=== PATIENT | male | born 1960 | race Caucasian/White ===

== ENCOUNTER 2018-10-12 10:27 | Observation (INO) ==
[2018-10-12] MEDS ORDERED: SALINE LOCK IV FLUID XX ONE (13:24)
[2018-10-12] MEDS ORDERED: ZOFRAN IV PRN (13:24)
[2018-10-12] MEDS ORDERED: TESSALON PO PRN (13:33)
[2018-10-12] MEDS ORDERED: VANCOMYCIN IV PER PHARMACY MISC SCH (13:45)
--- NOTE | 2018-10-12 14:07 | Diag Imaging Result Doc PS360 ---
EXAM: CHEST-2 VIEWS 10/12/2018 HISTORY: fever/cough TECHNIQUE: Two views the chest COMMENT: There is no evidence of acute cardiac or pulmonary disease. Compared to 05/30/2016 there has been no significant change. IMPRESSION: No evidence of acute disease. Electronically signed by Scott Yepez 10/12/2018 2:05 PM
[2018-10-12 14:29] LABS: BASO# 0.01 X1000 (0.0-0.2); BASO% 0.1 % (0.0-0.8); EOS# 0.02 X1000 (0.0-0.7); EOS% 0.2 % (0.0-10.0); HEMATOCRIT 38.7 % (42.0-52.0); HEMOGLOBIN 12.1 g/dL (14.0-18.0); IMM GRAN# 0.05 X1000 (0.0-0.04); IMM GRAN% 0.5 % (0.0-0.5); LYMPH# 0.85 X1000 (1.2-3.4); LYMPH% 7.9 % (20.5-51.1); MCH 26.4 PG (27-31); MCHC 31.3 g/dL (33-37); MCV 84.5 FL (81-99); MONO# 1.51 X1000 (0.11-0.59); MONO% 14.1 % (1.7-9.3); MPV 9.4 FL (7.4-10.4); NEUT# 8.28 X1000 (1.4-6.5); NEUT% 77.2 % (42.2-75.2); PLT 288 X1000 (130-400); RBC 4.58 XMIL (4.7-6.1); RDW 14.5 % (11.5-14.5); WBC 10.72 X1000 (4.8-10.8)
[2018-10-12 14:46] LABS: AGAP 12; ALB/GLOB RATIO 1.2; ALBUMIN 3.7 g/dL (3.5-5.0); ALKALINE PHOSPHATASE 89 U/L (32-122); BUN 11 mg/dL (8-22); CALCIUM 8.8 mg/dL (8.8-10.2); CHLORIDE 101 mmol/L (98-107); COSMO 273; CREATININE 0.9 mg/dL (0.7-1.2); ESTIMATED GFR > 60; GLUCOSE 99 mg/dL (70-104); GOT 14 U/L (10-34); GPT 31 U/L (10-44); SODIUM 137 mmol/L (136-145); TCO2 24 mmol/L (25-35); TOTAL BILIRUBIN 1.38 mg/dL (0.20-1.00); TOTAL PROTEIN 6.8 g/dL (6.3-8.3)
[2018-10-12 14:47] LABS: HEMOGLOBIN A1C 6.2 % (4.8-6.0)
--- NOTE | 2018-10-12 14:53 | Diag Imaging Result Doc PS360 ---
EXAM: CT HEAD W/O CONTRAST 10/12/2018 HISTORY: holloway/fever TECHNIQUE: This exam was performed using automated exposure control, adjustment of mA or kV according to patient size, and/or use of iterative reconstruction technique. COMMENT: There is no evidence of mass effect, bleed, or abnormal extra-axial fluid collection. The visualized paranasal sinuses are clear. The calvarium is intact. IMPRESSION: No evidence of acute disease. Electronically signed by Scott Yepez 10/12/2018 2:50 PM
[2018-10-12] MEDS: TYLENOL PO PRN ×2 (15:08→23:42)
[2018-10-12] MEDS: MAXIPIME 1 GM in NS 50 ML IV SCH (15:20)
[2018-10-12] MEDS ORDERED: VANCOMYCIN 2 GM in NS 500 ML IV SCH (17:00)
[2018-10-12] MEDS: HUMULIN R SUBQ SCH ×2 (19:57→20:47)
[2018-10-12] MEDS: ASPIRIN EC PO SCH (20:46)
[2018-10-12] MEDS: LIPITOR PO SCH (20:46)
[2018-10-12] MEDS: VANCOMYCIN 2 GM in NS 500 ML IV SCH (21:30)
--- NOTE | 2018-10-12 23:21 | HISTORY AND PHYSICAL ---
CHIEF COMPLAINT: Off-and-on fevers, with history of recent sepsis. HISTORY OF PRESENT ILLNESS: The patient is a 58-year-old white male followed in my medical practice, who states he has actually had some off-and-on fevers he has noted for the past year and a half. He has been treated over this timeframe with Humira per Dr. Armas for Crohn disease, and he has done better in that regard; however, he would have episodes of rigors and fever that would last a day or 2 at a time periodically. Over the last 2 weeks he has become much more severely ill. He says he has had some fevers, bad headaches, body aches, some discomfort in the chest and prominent cough. He was seen in the ER 4 days ago at [place] and admitted to the hospital. He underwent evaluation which included apparently lumbar puncture, blood cultures, chest x-rays and extensive labs. He was treated in the hospital with antibiotics IV, told he was diagnosed with sepsis. He is unaware of the organism, but said he was sent home on some antibiotic to take additionally at discharge, but he says he never got those filled yesterday when he was discharged. He was not running fevers for 48 hours or so during the latter part of the hospitalization, but promptly on returning home, he began to have some read redevelopment of fever last night. His temperature this morning was elevated again, and he comes in for evaluation. He does complain of some headache, some discomfort in the chest with deep inspiration, some coughing. No pinpoint tenderness over the chest. Denies leg pain or swelling. MEDICATIONS: He has been off his Humira for the past 3 weeks. Other medications include Jardiance, Nexium, aspirin and Lipitor. ALLERGIES: Penicillin. PAST MEDICAL HISTORY: 1. 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 Armas. 2. Type 2 DM, diagnosed 06/2015, with good control. 3. Hypercholesterolemia, diagnosed 06/2015. 4. GERD. PAST SURGICAL HISTORY: 1. Appendectomy. 2. Left knee arthroscopy. IMMUNIZATIONS: He has had hepatitis B vaccination #1 on 07/13/2016 and a hepatitis A vaccination one time, 07/23/2016. FAMILY HISTORY: Notable for lung cancer in his sister. Father and mother with hypertension. AR in his mother in her 40s. No diabetes in the family. Mother and father with CVA in their 40s. SOCIAL HISTORY: The patient lives in [place]. He is . 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 He has 2 children. One pack a cigarettes per day smoker for about 28 years. Denies alcohol use. REVIEW OF SYSTEMS: Negative except as above. He notably denies dysuria. Urine culture in the hospital in [place] was negative by his report. PHYSICAL EXAMINATION: VITAL SIGNS: Blood pressure 114/72, pulse 93. Temperature 101.4 degrees orally, with Tylenol on board. GENERAL: Weight 248, height 6 feet 1 inch. BMI 32. Mildly obese white male, mildly ill appearing. SKIN: Warm and dry. No rashes or skin breakdown. HEENT: NC/AT. PERRL, EOMI. Sclerae clear. TMs clear. OP: No redness. NECK: No meningeal signs. No LA or JVD. No thyromegaly or bruits. CARDIOVASCULAR: RRR without definite MGR. LUNGS: CTA. BACK: No point tenderness. ABDOMEN: Protuberant, soft, NT, ND. No mass. No HSM. GENITOURINARY/RECTAL: Deferred. EXTREMITIES: No calf tenderness, cords or edema. Peripheral pulses 2+. NEUROLOGIC: Cranial nerves 2-12 are intact. Nonfocal. ASSESSMENT: 1. Recurrent fevers in an immunocompromised patient, on Humira longstanding. 2. History of sepsis, diagnosed in the hospital in [place] by patient report. 3. Crohn disease. 4. Type 2 diabetes mellitus. 5. Hypercholesterolemia. 6. Gastroesophageal reflux disease. 7. Mild obesity. PLAN: Continue to leave off the Humira. We will admit the patient back to the hospital. Repeat blood cultures, urinalysis with culture and sensitivity. Check chest x-ray, check extensive labs to include CBC, CMP and hemoglobin A1c. Check echocardiogram. Hydrate him, keep him on a diabetic diet. Start him on broad-spectrum antibiotics of cefepime and vancomycin. We will obtain records from [facility] to see what organism had grown out in his cultures. cc: Yoni Haddad MD
[2018-10-13] MEDS ORDERED: TORADOL IV ONE (00:05)
[2018-10-13] MEDS ORDERED: DEMEROL IV ONE (00:06)
[2018-10-13] MEDS: MAXIPIME 1 GM in NS 50 ML IV SCH ×2 (02:30→13:37)
[2018-10-13] MEDS: HUMULIN R SUBQ SCH ×4 (06:22→20:01)
[2018-10-13] MEDS: NON-FORMULARY MED (Empagliflozin [Jardiance] 0 MG) PO SCH (08:43)
[2018-10-13] MEDS: TYLENOL PO PRN ×2 (08:43→17:06)
[2018-10-13] MEDS ORDERED: PRILOSEC PO SCH (09:00)
[2018-10-13 09:30] LABS: URINE SOURCE CLEAN CATCH
[2018-10-13 09:39] LABS: BILIRUBIN URINE NEGATIVE (NEGATIVE); BLOOD URINE NEGATIVE (NEGATIVE); COLOR YELLOW; GLUCOSE URINE >1000 mg/dL (NEGATIVE); KETONE URINE TRACE mg/dL (NEGATIVE); LEUKOCYTES URINE NEGATIVE (NEGATIVE); NITRITE URINE NEGATIVE (NEGATIVE); PROTEIN URINE NEGATIVE (NEGATIVE); SP GRAVITY URINE 1.017; TURBIDITY URINE CLEAR (CLEAR); UROBILINOGEN URINE NORMAL (NORMAL)
[2018-10-13 09:40] LABS: UR EPITHELIAL CELLS <10 /HPF (<10); URINE BACTERIA NEGATIVE /HPF; URINE RBC <10 /HPF (<10); URINE WBC <10 /HPF (<10)
[2018-10-13 09:51] LABS: BASO# 0.01 X1000 (0.0-0.2); BASO% 0.1 % (0.0-0.8); EOS% 1.2 % (0.0-10.0); HEMATOCRIT 40.1 % (42.0-52.0); HEMOGLOBIN 12.5 g/dL (14.0-18.0); IMM GRAN# 0.07 X1000 (0.0-0.04); IMM GRAN% 0.8 % (0.0-0.5); LYMPH# 1.04 X1000 (1.2-3.4); LYMPH% 12.5 % (20.5-51.1); MCH 26.5 PG (27-31); MCHC 31.2 g/dL (33-37); MCV 85.1 FL (81-99); MONO# 0.95 X1000 (0.11-0.59); MONO% 11.4 % (1.7-9.3); MPV 9.4 FL (7.4-10.4); NEUT# 6.15 X1000 (1.4-6.5); PLT 289 X1000 (130-400); RBC 4.71 XMIL (4.7-6.1); RDW 14.7 % (11.5-14.5); WBC 8.32 X1000 (4.8-10.8)
[2018-10-13 10:11] LABS: AGAP 14; BUN 14 mg/dL (8-22); CALCIUM 9.4 mg/dL (8.8-10.2); CHLORIDE 102 mmol/L (98-107); COSMO 283; ESTIMATED GFR > 60; GLUCOSE 130 mg/dL (70-104); POTASSIUM 4.3 mmol/L (3.5-5.1); SODIUM 141 mmol/L (136-145); TCO2 25 mmol/L (25-35)
[2018-10-13] MEDS: VANCOMYCIN 2 GM in NS 500 ML IV SCH (11:12)
[2018-10-13] MEDS: ROBAXIN PO PRN ×2 (13:30→20:24)
--- NOTE | 2018-10-13 14:37 | INFECTIOUS DISEASE CONSULT REP ---
DATE: 10/13/2018 CONCLUSION: The patient has been having a chronic illness. He told me that he was put on Humira approximately 2 years ago, and for the past 1-1/2 years he has felt sick. Some of the symptoms include cough, headache, fever, chills, occasional chest pain and dyspnea. I am concerned that the patient has a chronic infectious type illness, such as tuberculosis or a fungal infection such as histoplasmosis or coccidioidomycosis or cryptococcus. I asked the patient if he had any risk factors at all for HIV infection, and he told me he does not. Therefore, I do not think it is necessary to draw HIV antibodies. RECOMMENDATIONS: I have ordered the following tests: Coccidioides antibody, cryptococcal antigen, histoplasma antibody, histoplasma antigen and QuantiFERON. I have gone ahead and started the patient on itraconazole, and I have discontinued Nexium because itraconazole is best absorbed in an acidic environment in the stomach. To further increase the acidity in the stomach, I have ordered that the patient should take his itraconazole with 4-5 sips of a carbonated beverage. The dose I have started the patient on is 200 mg p.o. every 12 hours. DISCUSSION: As mentioned above, the patient in the past year and a half has not felt good. In the last 2 weeks, he has had a marked increase in symptoms. He tells me he has been having cough, headache, shaking, fever. He did have a few loose stools, but that is cleared. He also occasionally has chest pain and occasionally he is dyspneic. He was admitted over at [facility]. I called [facility], and the microbiologist said that the blood cultures, urine culture, and spinal fluid culture from the patient were negative. The CBC at [facility] has a white blood cell count of 8320, hemoglobin 12.5, and platelet count 289,000. Creatinine is 1.0. GFR is greater than 60. Blood cultures are pending. CT scan of the head shows no acute disease. Chest x-ray also shows no acute disease. PAST MEDICAL HISTORY/REVIEW OF SYSTEMS: Eyes and ears: Patient does not have any problems seeing or hearing. Neck: No stiffness. Respiratory: See present illness. Cardiac: See present illness. GI: The patient is not having any nausea or vomiting. He did have a couple days of diarrhea, but that has cleared. Integument: No rash. PREVIOUS HOSPITALIZATIONS AND OPERATIONS: He recently was at [facility]. The patient has had 2 surgeries on his right shoulder and 2 surgeries on his left knee. He has had surgery on his left elbow. None of the joints were replaced with arthroplasties. The patient has also had an appendectomy. MEDICAL DISEASES: Positive for diabetes mellitus, hyperlipidemia, Crohn disease, and the use of Humira. INFECTIOUS DISEASE HISTORY: Negative for pneumonia and UTI. FAMILY HISTORY: Positive for diabetes mellitus, hypertension, myocardial infarction, stroke and cancer. SOCIAL HISTORY: The patient lives in [place]. He has been for 8 years. He has dogs for pets. He does not smoke cigarettes, drink alcoholic beverages or abuse drugs. 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 ALLERGIES: The patient is allergic to azithromycin manifested by swelling, and he is allergic to penicillin, but the exact reaction is unknown. It should be noted however that the patient is on cefepime now and tolerating it well. HOME MEDICATIONS: The home medications include Humira, aspirin, Lipitor, Tessalon, Jardiance and Nexium. PHYSICAL EXAMINATION: Vital Signs: Temperature is 97.8 degrees, pulse 71, respirations 20, blood pressure 125/77. The patient is 6 feet 1 inch tall and weighs 247 pounds. General: This is an obese, middle-aged male. He is in no acute distress. Head/eyes/ears/nose/throat: He can hear my spoken words and see near objects. No drainage noted from the nose or ears. Sinuses are not tender. He does not have any white coating of his tongue. Neck: No meningismus. Lungs: Clear to auscultation. Cardiovascular: Heart rate is regular. Abdomen: Soft and nontender. Neurologic: The patient is alert. He is able to ambulate without difficulty. His sensation is intact to touch. His memory as regarding his medical history is good. Thank you for the consult. cc: MD Yoni Mares MD MTDD
--- NOTE | 2018-10-13 15:59 | ECHO REPORT ---
ORDER DATE: 10/12/2018 INDICATION: Fever. Rule out endocarditis. FINDINGS: 1. The right atrium appears normal in size. 2. Trace tricuspid regurgitation. RV systolic pressure of 34. 3. Normal RV size and systolic function. 4. Trace pulmonic insufficiency. 5. Normal left atrial size with a dimension of 3.8 cm. 6. No mitral valve prolapse. Trace mitral regurgitation. No clear evidence of mitral stenosis. 7. Normal LV size, end-diastolic dimension of 5.3. Normal wall thicknesses with a posterior and interventricular septal wall thickness of 0.9 cm each. Normal LV systolic function. Estimated EF is 60% to 65% with normal wall motion. 8. Aortic valve opens well. It is trileaflet. No evidence of stenosis or insufficiency. 9. Aorta appears normal in visualized segments. 10. No pericardial effusion seen. 11. There is no clear evidence of adherent valvular vegetation. If clinical suspicion is high, I would recommend transesophageal echo. cc: MD Yoni Aden MD
--- NOTE | 2018-10-13 20:01 | PROGRESS NOTE ---
DATE: 10/13/2018 SUBJECTIVE: Patient seen earlier today and then again this evening. Still having some fevers and not had severe headache. Did have an episode of severe pain in his neck earlier after brushing his teeth, but that has seemed to subside some after Robaxin. Dr. Moscoso has seen the patient, and started him on antifungal and stopped the vancomycin. He remains on cefepime at this time. OBJECTIVE: Temperature max 102.8 degrees near midnight last night, afebrile since that time. Vital signs stable.Cardiovascular: RRR without murmur. Lungs: CTA. No meningeal signs. CSF blood cultures and urine culture from [facility] are negative. Extremities: No calf tenderness, cords, or edema. Neurologic: Nonfocal. LABORATORY AND DIAGNOSTIC DATA: White count this morning 8.3, hemoglobin 12.5, platelets 289,000. D-dimer 0.39. BMP is normal. PSA normal at 1.12. Calcium 9.4. Urinalysis negative, except for glucose, but he is on Jardiance. CT head is negative. Chest x-ray negative. Echocardiogram reveals trace mitral regurgitation, EF 60% to 65% with normal wall motion, no evidence of valvular vegetations. ASSESSMENT: 1. Immunocompromised. 2. Recurrent fevers. 3. 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 Armas. 4. Type 2 diabetes mellitus, controlled. 5. Hypercholesterolemia. 6. Gastroesophageal reflux disease. 7. Mild obesity. 8. Neck pain, thought spasm. PLAN: Continue cefepime and antifungal per Dr. Moscoso. He is off the vancomycin now. Dr. Moscoso has run fungal testing and QuantiFERON testing and will await those results. Continue the Robaxin for episodic neck pain. We will follow clinically. cc: Yoni Haddad MD
[2018-10-13] MEDS: SPORANOX PO SCH ×2 (20:23→20:36)
[2018-10-13] MEDS: ASPIRIN EC PO SCH (20:23)
[2018-10-13] MEDS: LIPITOR PO SCH (20:23)
[2018-10-14] MEDS: MAXIPIME 1 GM in NS 50 ML IV SCH ×2 (01:52→16:07)
[2018-10-14] MEDS: TYLENOL PO PRN ×3 (06:06→22:32)
[2018-10-14] MEDS: HUMULIN R SUBQ SCH ×4 (06:07→22:36)
[2018-10-14] MEDS: SPORANOX PO SCH ×2 (08:27→22:37)
[2018-10-14] MEDS: NON-FORMULARY MED (Empagliflozin [Jardiance] 0 MG) PO SCH (08:28)
[2018-10-14] MEDS: ROBAXIN PO PRN (08:38)
[2018-10-14 13:16] LABS: COCCIDIOIDES AB SCREEN SERUM SEE COMMENTS
--- NOTE | 2018-10-14 14:10 | PROGRESS NOTE ---
DATE: 10/14/2018 SUBJECTIVE: Patient complains of severe headache, frontal in top of his head. He says it is much worse if he sits up and tries to move about seems to do better if he lays back. It has been unresponsive to treatment so far with Tylenol, 1 dose of Demerol, Toradol, and Robaxin. The patient on questioning had the spinal tap done at [place] and says he was having some headache before the spinal tap procedure, but says the headache is different and more pronounced with standing or rising since the spinal tap. Otherwise, he is stable. Denies other complaints. OBJECTIVE: T-max 102.4 degrees axillary yesterday evening. T current 98.1, pulse 76, respirations 20, blood pressure 109/67, O2 saturation on room air 94%.Skin: No rashes. HEENT: NC/AT, PERRL, extraocular movements are intact. Sclerae clear, OP no redness. Tongue in the midline. Neck: No LA. No TMG. CV: RRR without murmur. Lungs: CTA. Abdomen: Protuberant, soft, NT, ND. No mass. No HSM. Extremities: No calf tenderness, cords or edema. Peripheral pulses 2+ Neurologic: Cranial nerves 2-12 are intact. No focal deficits. LABORATORY DATA: Fungal testing serologies in progress. So for coccoides antibody screen is negative. Cryptococcal antigen in progress. ASSESSMENT: 1. Suspected spinal headache related to lumbar puncture done at [facility]. 2. Immunocompromised related to Humira. 3. Recurrent fevers, rule out fungal etiology. 4. Crohn's disease, followed by Dr. Armas. 5. Type 2 diabetes mellitus, controlled. 6. Hypercholesterolemia. 7. Gastroesophageal reflux disease. 8. Mild obesity. PLAN: We will continue to await the fungal and TB testing that is in progress. Continue cefepime and Sporanox per Dr. Moscoso. I have spoken with Dr. Malone, anesthesiologist and he is going to evaluate the patient for possible spinal headache and I will also get Dr. Armas to evaluate the patient to see if there is other alternative medications he could use for his Crohn's disease, which appears to be inactive at this point in time. cc: Yoni Haddad MD
--- NOTE | 2018-10-14 14:49 | INFECTIOUS DISEASE PROGRESS NO ---
DATE: 10/14/2018 HISTORY OF PRESENT ILLNESS: The patient's main problem now is he is having severe headaches as well as fever. I think that the patient's problem originated from being on Humira, and that he has become ill with an infection such as fungal infection or possibly TB. MEDICATIONS: The patient is on cefepime and itraconazole. PHYSICAL EXAMINATION: Vital Signs: Temperature is 98.1 degrees, pulse 76, respirations 20, blood pressure 109/67. Unfortunately, the patient told me last night he had a temperature up to 102. Head/eyes/ears/nose/throat: He can hear my spoken words and see near objects. He does not have any drainage from his nose or ears. Neck: No meningismus. Lungs: Clear to auscultation. Cardiovascular: Regular heart rate. Abdomen: Soft and nontender. Neurologic: The patient is alert. He can ambulate without difficulty, but he is complaining of headache. Integument: No rash. LAB AND X-RAY: There is no new radiographic study. Blood cultures thus far are negative. Cryptococcal antigen is negative. ASSESSMENT AND PLAN: As mentioned above, I think the patient has some type of chronic infection. He also is having severe headaches, which could be caused by a central nervous system infection. The patient did have a spinal tap at the hospital he was just in and if the white blood cell count, glucose and protein were tested, and if they were normal, then I do not think another spinal tap would be needed. If those parameter as well as some other things, if none of that was done on the spinal fluid, then I think he should have another spinal tap and also a consult with Neurology. For now, I am going to continue with the itraconazole. COMORBIDITIES: I think the biggest comorbidity is that he is on Humira. cc: MD Yoni Mares MD
[2018-10-14] MEDS: LIPITOR PO SCH (22:33)
[2018-10-14] MEDS: ASPIRIN EC PO SCH (22:34)
[2018-10-15] MEDS: MAXIPIME 1 GM in NS 50 ML IV SCH ×2 (01:35→13:37)
[2018-10-15] MEDS: HUMULIN R SUBQ SCH ×4 (06:04→20:39)
[2018-10-15] MEDS: TYLENOL PO PRN ×2 (07:50→17:34)
[2018-10-15] MEDS: SPORANOX PO SCH ×2 (09:21→20:40)
[2018-10-15] MEDS: NON-FORMULARY MED (Empagliflozin [Jardiance] 0 MG) PO SCH (09:21)
[2018-10-15] MEDS: ULTRAM PO PRN (13:35)
--- NOTE | 2018-10-15 20:14 | GASTROENTEROLOGY CONSULTATION ---
DATE: 10/15/2018 CONSULTING PHYSICIAN: Dr. Haddad. REASON FOR CONSULT: Crohn's disease. HISTORY: This is 58-year-old gentleman, who I have been seeing for awhile for inflammatory bowel disease, Crohn's disease. He has been on Humira for his Crohn's and has been doing very well from a GI point of view. He was started on Humira in 2017, after confirming that he does not have dormant TB or hepatitis B by a QuantiFERON gold, as well as hepatitis B studies. He has responded very well with Humira. He was being seen at the office every 6 months, and he did not complain of any GI or other symptoms. Today, he tells me that he has been experiencing episodes of chills and fever for the past year and a half, and this would happen once every few months. Unfortunately, at the times that he had seen me in the office, he was doing fine and would never bother to mention to me about his episodes of fever and chills. He tells me that all along with his fever and chills, he also had some headache. Occasionally, he would have pain in the left lower quadrant area, which is something recent, but he has not had any diarrhea, has not any blood or mucus in his stool. His appetite has been good. He has been eating well. 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 Again, he thinks that he had fever while he was driving, but he never took temperature to corroborate that. While he was in the hospital, he did have another episode of chills and had temperature going up to 102 degrees Fahrenheit. During these times, he was evaluated the urgent care, was diagnosed with sinusitis, and was treated with antibiotics. While he was an on antibiotics, he would get diarrhea, but that resolved after he stopped his antibiotics. Since admission, he was evaluated by Dr. Moscoso, Infectious Disease. So far, workup has not revealed any particular pathogen that would explain his "infectious etiology" secondary to his immunocompromised status because of anti-TNF. He has responded well to treatment. For the past 24 hours, he has not had any fever. Since admission, he has not had any bowel movement. He denies any blood or mucus in his stool. He has been tolerating diet. He denies any headache now. Denies any double vision. Has not had any earache, ear discharge, ringing in the ear. Denies any sore throat, sores in his mouth. Has had occasional cough, which has improved also. Denies any chest pain, shortness of breath, or irregular heartbeat. Denies any dysuria, polyuria, or hematuria. Denies any joint pains, arthralgias, or arthritis, but he does complain of some injection site swelling and tenderness occasionally at the site of his Humira injection. PAST MEDICAL HISTORY: Significant for diabetes, hyperlipidemia, gastroesophageal disease, and Crohn's disease. PAST SURGICAL HISTORY: He has had appendectomy and left knee arthroscopy. MEDICATIONS PRIOR TO HOSPITALIZATION: He was on Humira injections, which he has missed his last 2 injections. He is also taking aspirin, Lipitor, Tessalon Perles, Jardiance, and Nexium. ALLERGIES: Claims to be allergic to penicillin and azithromycin. SOCIAL HISTORY: He is , lives with his . 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 He does not smoke, does not drink, no illicit drugs. FAMILY HISTORY: Noncontributory. REVIEW OF SYSTEMS: As per HPI as above. PHYSICAL EXAMINATION: A very pleasant, white male, overweight. He is lying in bed. He is conscious, alert, appears to be in no distress. Vitals: Temperature is 98.1 degrees, pulse 65 per minute, breathing 20, blood pressure 105/70. Temperature max was 102 degrees Fahrenheit on 10/13/2018, and since then, he has not had any fever. HEENT: Head is atraumatic, normocephalic. Eyes: Conjunctivae normal. Sclerae anicteric. Nares are patent, no discharge. Mouth: Buccal mucosa is moist. Throat is normal. Neck: Supple. No lymphadenopathy or thyromegaly. Chest: Bilaterally symmetrical, is moving with respirations. Breath sounds audible bilaterally. No rhonchi or crepitations could be heard. Heart: Audible. No murmur could be appreciated. Abdomen: Full. It is soft. It is nontender. I could not appreciate any mass or visceromegaly. No ascites noted. Bowel sounds are audible. No pedal edema, cyanosis, or clubbing was noted. Central nervous system: Grossly intact. No sensory or motor deficit. LABORATORY: Labs reviewed, which show WBC of 8.32, hemoglobin 12.5, hematocrit 40.1, MCV 85.1, platelets 289,000. Sodium 141, potassium 4.3, chloride 102, bicarbonate is 25, BUN is 14, creatinine 1.0. LFTs were normal. Urinalysis was normal, except for sugar. So far, Coccidioides antibody was negative and cryptococcal antigen was also negative. IMPRESSION/PLAN: This 58-year-old gentleman with history of Crohn's disease, also has diabetes, has presented with headache, fever, chills. He has been on Humira and his Crohn's is well controlled with that. He has presented with infection. Focus of infection is not known at this point. With the history of usage of anti-TNF and immunocompromise for cellular pathogen, there is always a possibility of opportunistic infection, which still has to be determined. Again, prior to starting him on his biologic, he did not have any evidence of dormant TB or hepatitis B. So far, workup has been negative, but he has responded well to treatment. I would agree with continuing the same while workup is in progress. In the meantime, I do not think he can have Humira at this point, will have to put a hold on to that and continue to observe. If symptoms do reoccur, we have to find other treatment for his Crohn's, but again, we can wait at this point. I have explained my findings and plan to the patient, and he understands. All of his pertinent questions were answered. cc: MD Yoni Gordillo MD
[2018-10-15] MEDS: LIPITOR PO SCH (20:40)
[2018-10-15] MEDS: ASPIRIN EC PO SCH (20:40)
[2018-10-16] MEDS: MAXIPIME 1 GM in NS 50 ML IV SCH ×2 (02:24→14:59)
[2018-10-16] MEDS: HUMULIN R SUBQ SCH ×3 (06:15→20:01)
[2018-10-16] MEDS: NON-FORMULARY MED (Empagliflozin [Jardiance] 0 MG) PO SCH (08:45)
[2018-10-16] MEDS: MIRALAX PO SCH (08:45)
[2018-10-16] MEDS: TYLENOL PO PRN (08:45)
[2018-10-16] MEDS: SPORANOX PO SCH ×3 (08:45→20:01)
[2018-10-16] MEDS: ULTRAM PO PRN ×3 (08:46→21:47)
[2018-10-16] MEDS: ROBAXIN PO PRN (09:17)
--- NOTE | 2018-10-16 12:59 | GASTROENTEROLOGY PROGRESS NOTE ---
DATE: 10/16/2018 SUBJECTIVE: Patient is awake and alert. He is complaining of a headache. No reported fever over the last several days. Patient is being followed by Dr. Moscoso and has also had a neurology consultation. Workup is in progress on possible source of infection. The patient's Humira has been held. OBJECTIVE: Vital Signs: Temperature 97.7 degrees, pulse 65, respirations 17, blood pressure 109/70. General: Patient is awake, alert, no acute distress. LABORATORY: Hematology. WBC 8.32, hemoglobin 12.5, hematocrit 40.1, MCV 85.1, platelets 289,000. Chemistry. Sodium 141, potassium 4.3, chloride 102, CO2 25, BUN 14, creatinine 1.0, glucose 130. Microbiology. Blood cultures on 10/12 showed no growth after 48 hours. Serology was negative for coccidioides and negative for cryptococcal antigen. ASSESSMENT AND PLAN: 1. Fevers. 2. Headache. 3. Crohn disease on immunosuppressant Humira which has been held. 4. Diabetes type 2, hypercholesterolemia, gastroesophageal reflux disease. Awaiting further workup. Continued to hold Humira. Will continue to follow. Further plans will be made as needed. I have discussed this case with Dr. Armas. Dictated by LUISA Chatman for Jun Armas MD cc: LUISA Espinal MD Stephen W. Harbin, MD
[2018-10-16] MEDS: LIPITOR PO SCH ×2 (19:51→20:01)
[2018-10-16] MEDS: ASPIRIN EC PO SCH ×2 (19:51→20:01)
[2018-10-17] MEDS: MAXIPIME 1 GM in NS 50 ML IV SCH (02:15)
[2018-10-17] MEDS: TYLENOL PO PRN ×2 (02:17→09:10)
--- NOTE | 2018-10-17 05:58 | PROGRESS NOTE ---
DATE: 10/15/2018 ROOM: 327A Mr. Landers is feeling better, except that he continues to have some headache from lumbar puncture that he had at [facility]. His lungs are clear. Heart sounds are normal. Abdomen is soft, nontender. His blood sugar was 120. Blood cultures are negative. He has Crohn disease and has been on Humira. Because of that, he is somewhat immunocompromised. He is on Sporanox as well as cefepime IV. He has diabetes, GERD syndrome. Vital signs today are stable. We will continue with the current management. -6 cc: MD Yoni Fitzpatrick MD
--- NOTE | 2018-10-17 06:00 | PROGRESS NOTE ---
DATE: 10/16/2018 Mr. Landers is doing better. His vital signs are stable. Blood sugar was 130. He is on IV cefepime and Sporanox. He is a good candidate for opportunistic infections as he had Humira for his Crohn's disease. Overall condition is unchanged. We will continue with the current management. -0 cc: MD Yoni Fitzpatrick MD
[2018-10-17] MEDS: HUMULIN R SUBQ SCH ×3 (06:09→12:35)
[2018-10-17] MEDS: ULTRAM PO PRN (06:32)
[2018-10-17 07:29] VITALS: BP 106/76
[2018-10-17] MEDS: MIRALAX PO SCH (09:09)
--- NOTE | 2018-10-17 09:09 | PROGRESS NOTE ---
DATE: 10/17/2018 SUBJECTIVE: The patient is feeling better, except he still has some headache. Anesthesiologist had seen him 3 days ago, and decided against a blood patch for fear of infectious process going on. The patient has tolerated the Tylenol for pain control. Dr. Armas had also seen the patient, and recommended leaving off the Humira. He is deciding on what he will do next in regard to his Crohn's disease, which appears inactive at this point. OBJECTIVE: Afebrile greater than 24 hours. CV: RRR without murmur. Lungs: CTA. Extremities: No calf tenderness, cords or edema. Neurologic: Cranial nerves 2-12 are intact. No focal deficits. PERRL. EOMI. DIAGNOSTIC: Lab tests to include histoplasma antigen, cryptococcus antigen, Coccidioides antibody all negative, but fever has resolved. ASSESSMENT: 1. Spinal headache stable. 2. 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 3. Recurrent fevers, still possible likelihood of fungal etiology as patient has responded to Sporanox IV but also on the IV cefepime. 4. Crohn's disease followed by Dr. Armas, currently stable and off Humira. 5. Type 2 DM, controlled. 6. Hypercholesterolemia. 7. Gastroesophageal reflux disease. 8. Mild obesity. PLAN: We will discontinue telemetry. Ambulate t.i.d. Continue cefepime and Sporanox, and possibly discharge later today if okay with Dr. Moscoso on some oral treatment, especially with the oral Sporanox. We will discuss with Dr. Moscoso later today. Continue symptomatic treatment of the headache at this point with Tylenol and tramadol. cc: Yoni Haddad MD
[2018-10-17] MEDS: SPORANOX PO SCH (09:10)
[2018-10-17] MEDS: NON-FORMULARY MED (Empagliflozin [Jardiance] 0 MG) PO SCH (09:21)
--- NOTE | 2018-10-17 18:13 | GASTROENTEROLOGY PROGRESS NOTE ---
DATE: 10/17/2018 SUBJECTIVE: Patient states he is feeling better. He is up walking in his room. He states he does still have a headache. No reported fever. His Humira has been placed on hold. He thinks he may be discharged this afternoon. OBJECTIVE: Vital Signs: Temperature 97.7 degrees, pulse 62, respirations 20, blood pressure 106/76. General: Patient is awake and alert, in no acute distress. DIAGNOSTIC STUDIES: Serology showed histoplasma negative. TB QuantiFERON was negative. Cryptococcus negative. Coccidioides was negative. All those serology tests have been negative. Patient is following with Dr. Moscoso. ASSESSMENT AND PLAN: 1. Fevers. Following with Dr. Moscoso. On antibiotics and Sporanox. 2. Crohn disease. Patient's Humira has been placed on hold. 3. Immunocompromised patient related to biologic medicine, Humira, which is on hold. 4. Headache. Continue to monitor. Recommend to follow up with Dr. Moscoso regarding antibiotic regimen. Follow up with Dr. Armas as an outpatient. I have asked the patient to call and make a follow-up appointment. He may be discharged today. We will continue to follow during this hospital course. Further plans to be made as needed. I have discussed this case with Dr. Armas. Dictated by LUISA Chatman for Jun Armas MD cc: LUISA Espinal MD Stephen W. Harbin, MD
--- NOTE | 2018-10-23 20:55 | DISCHARGE SUMMARY ---
ADMISSION DATE: 10/12/2018 DISCHARGE DATE: 10/17/2018 DIAGNOSES: 1. Recurrent fevers, severe with possible fungal etiology as patient has responded during hospitalization with resolution of his fevers with oral Sporanox. 2. Immunocompromised related to Humira he has been on per Dr. Armas for Crohn disease. 3. Spinal headache pronounced but improving slightly. 4. 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 5. Type 2 diabetes mellitus, controlled. 6. Hypercholesterolemia. 7. Gastroesophageal reflux disease. 8. Mild obesity. CONSULTANTS: 1. Dr. Maximino Moscoso, Infectious Disease. 2. Dr. Armas, gastroenterology. 3. Anesthesia due to spinal headache. PROCEDURES: 1. Chest x-ray done 10/12: No acute disease. 2. Echocardiogram done 10/12: Trace MR. EF 60 to 65 percent with normal wall motion. No evidence of adherent valvular vegetation. 3. CT head done 10/12/2018: No evidence of acute disease. REASON FOR ADMISSION AND HOSPITAL COURSE: The patient is a 58-year-old white male followed in my medical practice. He has been on Humira longstanding per Dr. Armas for Crohn disease. He said he has had off and on fevers, pronounced at times up to 101 to 104. They had become more severe over the 2 weeks prior to admission. He had sought attention in the ER 4 days prior to this admission at the [place] [facility] and was admitted to the hospital there. He underwent blood cultures, chest x-rays, extensive labs and blood cultures and urine culture there were negative and lumbar puncture studies were negative. He did not receive echocardiogram and was maintained on IV antibiotics during that hospitalization. At discharge, he was discharged on some brief antibiotics, which the patient did not fill. He had redeveloped fever as outpatient within 2 days of that hospitalization and indeed on evaluation in my office, he complained of severe headache and was ill appearing with temperature of 101.4 degrees orally with Tylenol on board. Due to the patient being immunocompromised related to the Humira, I admitted the patient for repeat blood cultures and urine culture, chest x-ray, lab data, echo and chest x-ray were negative. CT head negative. Patient was maintained on cefepime and vancomycin and Dr. Moscoso was consulted for assistance. Blood cultures subsequently came back negative. White count on admission 10.7, hemoglobin 12.1, platelets 288,000. D-dimer normal at 0.39. CMP unremarkable except for total bilirubin of 1.38, hemoglobin A1c 6.2. UA was normal. Dr. Moscoso saw the patient and started him on oral Sporanox and left him on the cefepime and stopped the vancomycin. He performed tests to include fungal studies with the coccidioides antibody subsequently come back negative. Cryptococcus antigen screen negative. QuantiFERON test negative. Histoplasmosis studies were pending at the time of discharge. The patient had pronounced resolution of his symptoms of fever and felt better on Sporanox and by discharge as he had been afebrile for about 72 hours prior to discharge, it was felt that he could be discharged home. He did have a headache still, but that was defervescing some and I asked anesthesia to see the patient. This appeared to be a spinal headache as he had a lumbar puncture while in the hospital at [place]. He was treated with pain medication for that to include Ultram. Anesthesia did not feel like they wanted to perform the blood patch due to his recent potential infections and sepsis workup and recommended conservative treatment with pain medications. Thus, the patient was able to be discharged home and he will follow up in my office in 1 to 2 weeks and we will go over the results of his histoplasmosis studies and we will keep him on the Sporanox for 1 month and then try to discontinue that at that point if his studies are negative. If studies are positive we will continue and complete 6 months of treatment as per Dr. Moscoso's recommendation. DISCHARGE MEDICATIONS: Sporanox 200 mg p.o. b.i.d., Tylenol p.r.n., Ultram 50 mg p.o. q.6 hours p.r.n. pain, Jardiance 10 mg p.o. q.a.m., Lipitor 10 mg p.o. at bedtime, aspirin [address] Armas saw the patient during the hospitalization. As he was not having any flare ups of his Crohn disease, he recommended of course leaving him off the Humira as we were doing and he will follow up with him outpatient as well to consider the next course of treatment for his Crohn disease. cc: Yoni Haddad MD
== END 2018-10-17 15:06 | disposition home or self-care (01) ==
LOC: DIRADM 10:27 → INTOOBSV 10:27 → 3N 12:04
PROVIDERS: ADMIT Family Medicine; ATTEND Family Medicine